=== PATIENT | female | born 1945 | race Caucasian/White ===

== ENCOUNTER 2018-03-07 07:43 | Day surgery (SDC) | payer OTHER ==
[~2018-03-07] VITALS: Ht 172.7 cm; Wt 113.4 kg
[~2018-03-07 07:43] MED LIST: CEFAZOLIN SOD 1 GM in D5W 50 ML IV ONE
[2018-03-07] MEDS ORDERED: POLYMYXIN 500,000/BACIT.10,000 UNITS in NS IRR 1 L IR ONE (10:32)
[2018-03-07] MEDS ORDERED: ONDANSETRON HCL 4 MG/2 ML VIAL ONE (11:35)
[2018-03-07] MEDS ORDERED: MIDAZOLAM HCL 5 MG/ML VIAL (VERSED) IV ONE (11:35)
[2018-03-07] MEDS ORDERED: BUPIVACAINE /PF 0.5% 30 ML VIAL ONE (11:35)
[2018-03-07] MEDS ORDERED: SEVOFLURANE 15 MIN GAS INH ONE (11:35)
[2018-03-07] MEDS ORDERED: BUPIVACAINE /PF 0.25% 30 ML VIAL INJ ONE (11:35)
[2018-03-07] MEDS ORDERED: ISOSULFAN BLUE 5 ML VIAL (LYMPHAZURIN) ONE (11:35)
[2018-03-07] MEDS ORDERED: fentaNYL CITRATE 250 MCG/5 ML AMP ONE (11:35)
[2018-03-07] MEDS ORDERED: NS IRRIG SOLN 1000 ML IR ONE (11:35)
[2018-03-07] MEDS ORDERED: LR 1,000 ML IV.SOLN IV ONE (11:35)
[2018-03-07] MEDS ORDERED: PROPOFOL 200MG/ 20ML VIAL (DIPRIVAN) IV ONE (11:35)
[2018-03-07] MEDS ORDERED: LR 1,000 ML IV SCH (12:25)
[2018-03-07] MEDS ORDERED: METOCLOPRAMIDE HCL 10 MG/2 ML VIAL IVP PRN (12:30)
[2018-03-07] MEDS ORDERED: MORPHINE 4 MG/ML INJ. SYRINGE IVP PRN ×3 (12:30)
[2018-03-07] MEDS ORDERED: D5/0.45 NS 1,000 ML IV SCH (13:21)
[2018-03-07] MEDS ORDERED: HYDROcodone/ACETAMIN 5-325 MG TAB (NORCO/ VICODIN) PO PRN ×2 (13:30)
[2018-03-07] MEDS ORDERED: HYDROmorphone 1 MG INJ. 1 MG/ML AMPUL IVP PRN (13:30)
[2018-03-07 17:00] VITALS: BP_SYST 136
== END 2018-03-07 16:10 | disposition home or self-care (01) ==
LOC: SDS 07:43 → SMU 07:44 → SDS 16:10
PROVIDERS: ATTEND Colon & Rectal Surgery
DX: C50.911 Malignant neoplasm of unspecified site of right female breast (principal); E78.5 Hyperlipidemia, unspecified; E03.9 Hypothyroidism, unspecified; F32.9 Major depressive disorder, single episode, unspecified; I70.0 Atherosclerosis of aorta; H81.10 Benign paroxysmal vertigo, unspecified ear; Z79.01 Long term (current) use of anticoagulants; R06.09 Other forms of dyspnea; F32.0 Major depressive disorder, single episode, mild; I34.0 Nonrheumatic mitral (valve) insufficiency; E66.01 Morbid (severe) obesity due to excess calories; Z68.41 Body mass index [BMI] 40.0-44.9, adult; Z87.891 Personal history of nicotine dependence; M17.0 Bilateral primary osteoarthritis of knee; I48.0 Paroxysmal atrial fibrillation; D68.69 Other thrombophilia; I10 Essential (primary) hypertension; Z90.710 Acquired absence of both cervix and uterus; Z98.890 Other specified postprocedural states; Z83.3 Family history of diabetes mellitus; Z80.3 Family history of malignant neoplasm of breast; Z80.8 Family history of malignant neoplasm of other organs or systems; Z82.3 Family history of stroke; Z79.899 Other long term (current) drug therapy; Z79.84 Long term (current) use of oral hypoglycemic drugs; J44.9 Chronic obstructive pulmonary disease, unspecified
CPT/HCPCS: 19081; 19301; 38525; 76642; 78195; 88305; 88307; A9541; J0690; J2250; J2405; J2704; J3010; J3490 ×2; J7060; J7120; Q9968; 76098-TC